=== PATIENT | male | born 1965 | race Caucasian/White ===

== ENCOUNTER 2021-03-11 05:28 | Day surgery (SDC) | payer BC, OTHER ==
[2021-03-08 12:44] VITALS: BMI 27.1
[2021-03-11] MEDS ORDERED: LIDOCAINE HCL 1%, 10 MG/ML (20ML VIAL) ONE (07:08)
[2021-03-11] MEDS ORDERED: BUPIVACAINE HCL/PF 0.5% (5MG/ML) 10 ML VIAL ONE (07:09)
[2021-03-11] MEDS ORDERED: MIDAZOLAM HCL 2 MG/2 ML SINGLE DOSE VIAL ONE (07:44)
[2021-03-11] MEDS ORDERED: DEXAMETHASONE SOD PHOSPHATE 4 MG/1 ML VIAL ONE (08:18)
[2021-03-11] MEDS ORDERED: ceFAZolin SODIUM 1 GM VIAL ONE (08:18)
[2021-03-11] MEDS ORDERED: ONDANSETRON 4 MG/2 ML VIAL ONE (08:18)
[2021-03-11] MEDS ORDERED: KETOROLAC TROMETHAMINE 30 MG/1 ML VIAL ONE (08:18)
[2021-03-11] MEDS ORDERED: ceFAZolin SODIUM 1 GM VIAL IVPB ONE (08:20)
[2021-03-11] MEDS ORDERED: BUPIVACAINE HCL/PF 0.5% (5MG/ML) 10 ML VIAL IJ ONE ×2 (08:30)
[2021-03-11] MEDS ORDERED: LIDOCAINE HCL 1%, 10 MG/ML (20ML VIAL) INF ONE ×2 (08:30)
[2021-03-11] MEDS ORDERED: PROPOFOL 20 ML ONE (08:36)
[2021-03-11 09:11] LABS: URINE APPEARANCE CLEAR; URINE BILIRUBIN NEGATIVE (NEGATIVE); URINE COLOR YELLOW; URINE GLUCOSE (UA) NEGATIVE (NEGATIVE); URINE KETONE NEGATIVE (NEGATIVE); URINE LEUK ESTERASE NEGATIVE (NEGATIVE); URINE NITRITE NEGATIVE (NEGATIVE); URINE PROTEIN NEGATIVE (NEGATIVE); URINE UROBILINOGEN 0.2 mg/dL (0.2-1.0)
[2021-03-11] MEDS ORDERED: ONDANSETRON 4 MG/2 ML VIAL IVPUSH PRN ×2 (09:15→12:29)
[2021-03-11] MEDS ORDERED: LACTATED RINGERS SOLUTION 1,000 ML IV SCH ×2 (09:15→12:30)
[2021-03-11] MEDS ORDERED: oxyCODONE HCL 5 MG TABLET PO PRN ×2 (09:15→12:29)
[2021-03-11 12:07] VITALS: BP 146/94; PULSE 71; TEMP 97.3
== END 2021-03-11 11:30 | disposition home or self-care (01) ==
LOC: JASU-SURG 05:28
PROVIDERS: ATTEND Orthopaedic Surgery
PROC: 0LN80ZZ Release Left Hand Tendon, Open Approach (ICD-10-PCS; principal; 2021-03-11 08:00)
DX: M65.332 Trigger finger, left middle finger (principal)
CPT/HCPCS: 81003; 82962; 88304-TC

== ENCOUNTER 2022-08-07 03:27 | Inpatient (IN) | payer BC, OTHER ==
[2022-08-07 04:02] VITALS: BMI 28.3
[2022-08-07] MEDS ORDERED: ACETAMINOPHEN 1000 MG/100 ML BAG IVPB ONE (04:20)
[2022-08-07] MEDS ORDERED: ACETAMINOPHEN INJECTION 100 ML IVPB ONE (04:28)
[2022-08-07] MEDS ORDERED: ONDANSETRON 4 MG/2 ML VIAL ONE (04:28)
[2022-08-07] MEDS ORDERED: ONDANSETRON 4 MG/2 ML VIAL IVPUSH ONE (04:34)
[2022-08-07 04:58] LABS: BASO % 0.2 % (0-2.0); EOS % 0.1 % (0-4.5); HEMATOCRIT 42.4 % (35.4-49); HEMOGLOBIN 14.6 GM/dL (11.7-16.9); LYMPH % 9.1 % (8-40); MCH 28.5 pg (25.7-33.7); MCHC 34.5 g/dl (32.0-35.9); MEAN CELL VOLUME 82.7 fl (80-96); MEAN PLT VOLUME 9.7 fl (7.5-11.1); MONO % 3.6 % (3.8-10.2); PLATELET COUNT 184 10^3/uL (134-434); RBC 5.13 M/mm3 (4.00-5.60); RDW 13.5 % (11.9-15.9); WHITE BLOOD COUNT 10.2 K/mm3 (4.0-10.0)
[2022-08-07 05:00] LABS: EPI CELLS 2 /uL (0-25.1); HYALINE CASTS 1 /uL (0-3.1); PH,URINE 5.5 (5.0-8.0); URINE APPEARANCE CLEAR; URINE BACTERIA 0 /uL (0-1359); URINE BILIRUBIN NEGATIVE (NEGATIVE); URINE COLOR YELLOW; URINE GLUCOSE (UA) NEGATIVE (NEGATIVE); URINE KETONE 1+ (NEGATIVE); URINE LEUK ESTERASE NEGATIVE (NEGATIVE); URINE NITRITE NEGATIVE (NEGATIVE); URINE PROTEIN 1+ (NEGATIVE); URINE RBC 29 /uL (0-23.9); URINE UROBILINOGEN 0.2 mg/dL (0.2-1.0); URINE WBC 4 /uL (0-25.8)
[2022-08-07 05:13] LABS: CALCIUM 9.5 mg/dL (8.5-10.1)
[2022-08-07 05:14] LABS: ALBUMIN 4.5 g/dl (3.4-5.0); BLOOD UREA NITROGEN 18.6 mg/dL (7-18); MAGNESIUM 1.8 mg/dL (1.8-2.4)
[2022-08-07 05:17] LABS: CREATININE 1.3 mg/dL (0.55-1.3); PHOSPHOROUS 3.5 mg/dL (2.5-4.9)
[2022-08-07 05:18] LABS: TOT PROT 7.6 g/dl (6.4-8.2)
[2022-08-07] MEDS ORDERED: ASPIRIN 81 MG CHEWABLE TABLETS ONE (05:54)
[2022-08-07] MEDS ORDERED: ASPIRIN 81 MG CHEWABLE TABLETS PO ONE (05:54)
[2022-08-07] MEDS ORDERED: SODIUM CHLORIDE 0.9% 500 ML INFUS.BAG IV ONE (06:14)
[2022-08-07] MEDS ORDERED: ASPIRIN COATED 81 MG TABLET.EC ONE (10:19)
[2022-08-07] MEDS ORDERED: amLODIPine BESYLATE 5 MG TABLET (FP) ONE (10:19)
[2022-08-07] MEDS ORDERED: METOPROLOL TARTRATE 50 MG TABLET (FP) ONE (10:19)
[2022-08-07] MEDS ORDERED: ENOXAPARIN NA (PORCINE) 40 MG/0.4 ML DISP.SYRIN SQ ONE (10:20)
[2022-08-07] MEDS ORDERED: TAMSULOSIN HCL 0.4 MG CAP ONE (10:20)
[2022-08-07] MEDS: amLODIPine BESYLATE 5 MG TABLET (FP) PO SCH (10:25)
[2022-08-07] MEDS: METOPROLOL TARTRATE 50 MG TABLET (FP) PO SCH ×2 (10:25→23:01)
[2022-08-07] MEDS: TAMSULOSIN HCL 0.4 MG CAP PO SCH (10:25)
[2022-08-07] MEDS: ASPIRIN COATED 81 MG TABLET.EC PO SCH (10:25)
[2022-08-07] MEDS: ENOXAPARIN NA (PORCINE) 40 MG/0.4 ML DISP.SYRIN SQ SCH (10:25)
[2022-08-07] MEDS: LACTATED RINGERS SOLUTION 1,000 ML/1,000 ML INFUS.BAG IV SCH ×2 (10:36→23:02)
[2022-08-07] MEDS ORDERED: ONDANSETRON 4 MG/2 ML VIAL IVPUSH PRN (11:03)
[2022-08-07] MEDS ORDERED: ACETAMINOPHEN 325 MG TABLET (FP) PO PRN ×2 (11:03→12:20)
[2022-08-07] MEDS: INSULIN SLIDING SCALE (NOVOLOG) 1 VIAL SQ SCH ×3 (11:45→23:12)
[2022-08-07] MEDS ORDERED: KETOROLAC TROMETHAMINE 30 MG/1 ML VIAL IVPUSH ONE (11:58)
[2022-08-07] MEDS ORDERED: KETOROLAC TROMETHAMINE 30 MG/1 ML VIAL IVPUSH PRN (12:19)
[2022-08-07] MEDS: ATORVASTATIN CA 40 MG TABLET (FP) PO SCH (23:01)
[2022-08-08] MEDS: INSULIN SLIDING SCALE (NOVOLOG) 1 VIAL SQ SCH ×4 (06:12→21:24)
[2022-08-08 07:07] LABS: BASO % 0.4 % (0-2.0); EOS % 2.7 % (0-4.5); HEMATOCRIT 36.9 % (35.4-49); HEMOGLOBIN 12.9 GM/dL (11.7-16.9); MCH 28.9 pg (25.7-33.7); MCHC 35.1 g/dl (32.0-35.9); MEAN CELL VOLUME 82.3 fl (80-96); MEAN PLT VOLUME 9.7 fl (7.5-11.1); MONO % 11.1 % (3.8-10.2); NEUT % 55.8 % (42.8-82.8); PLATELET COUNT 136 10^3/uL (134-434); RBC 4.48 M/mm3 (4.00-5.60); RDW 13.3 % (11.9-15.9); WHITE BLOOD COUNT 4.7 K/mm3 (4.0-10.0)
[2022-08-08 07:31] LABS: CALCIUM 8.4 mg/dL (8.5-10.1)
[2022-08-08 07:32] LABS: MAGNESIUM 1.9 mg/dL (1.8-2.4)
[2022-08-08 07:35] LABS: CREATININE 1.3 mg/dL (0.55-1.3); PHOSPHOROUS 2.9 mg/dL (2.5-4.9)
[2022-08-08 07:36] LABS: BILIRUBIN,TOTAL 1.1 mg/dL (0.2-1); TOT PROT 5.8 g/dl (6.4-8.2)
[2022-08-08 07:42] LABS: ALBUMIN 3.3 g/dl (3.4-5.0)
[2022-08-08] MEDS: LACTATED RINGERS SOLUTION 1,000 ML/1,000 ML INFUS.BAG IV SCH ×2 (09:07→23:04)
[2022-08-08] MEDS: ASPIRIN COATED 81 MG TABLET.EC PO SCH (09:07)
[2022-08-08] MEDS: METOPROLOL TARTRATE 50 MG TABLET (FP) PO SCH ×2 (09:07→21:19)
[2022-08-08] MEDS: TAMSULOSIN HCL 0.4 MG CAP PO SCH (09:07)
[2022-08-08] MEDS: amLODIPine BESYLATE 5 MG TABLET (FP) PO SCH (09:08)
[2022-08-08] MEDS: ENOXAPARIN NA (PORCINE) 40 MG/0.4 ML DISP.SYRIN SQ SCH (09:08)
[2022-08-08] MEDS ORDERED: MAGNESIUM SULF 50% (8.12 MEQ/2 ML-1 GM VIAL) IVPB ONE (09:57)
[2022-08-08] MEDS ORDERED: TAMSULOSIN HCL 0.4 MG CAP PO ONE (13:49)
[2022-08-08] MEDS: ACETAMINOPHEN 1000 MG/100 ML BAG IVPB PRN ×2 (14:15→23:09)
[2022-08-08] MEDS: ATORVASTATIN CA 40 MG TABLET (FP) PO SCH (21:19)
[2022-08-09] MEDS: INSULIN SLIDING SCALE (NOVOLOG) 1 VIAL SQ SCH ×4 (06:48→21:24)
[2022-08-09 07:08] LABS: HEMATOCRIT 38.8 % (35.4-49); HEMOGLOBIN 13.5 GM/dL (11.7-16.9); MCHC 34.9 g/dl (32.0-35.9); MEAN PLT VOLUME 9.8 fl (7.5-11.1); PLATELET COUNT 142 10^3/uL (134-434); RBC 4.67 M/mm3 (4.00-5.60); RDW 13.3 % (11.9-15.9); WHITE BLOOD COUNT 5.5 K/mm3 (4.0-10.0)
[2022-08-09 07:29] LABS: POTASSIUM 3.8 mmol/L (3.5-5.1)
[2022-08-09 07:32] LABS: ALBUMIN 3.6 g/dl (3.4-5.0); CALCIUM 8.5 mg/dL (8.5-10.1); MAGNESIUM 2.2 mg/dL (1.8-2.4)
[2022-08-09 07:35] LABS: PHOSPHOROUS 3.8 mg/dL (2.5-4.9)
[2022-08-09 07:36] LABS: CREATININE 1.8 mg/dL (0.55-1.3)
[2022-08-09 07:37] LABS: BILIRUBIN,TOTAL 1.1 mg/dL (0.2-1); TOT PROT 6.5 g/dl (6.4-8.2)
[2022-08-09] MEDS: TAMSULOSIN HCL 0.4 MG CAP PO SCH (09:19)
[2022-08-09] MEDS: ASPIRIN COATED 81 MG TABLET.EC PO SCH (09:19)
[2022-08-09] MEDS: METOPROLOL TARTRATE 50 MG TABLET (FP) PO SCH ×2 (09:19→21:24)
[2022-08-09] MEDS: ENOXAPARIN NA (PORCINE) 40 MG/0.4 ML DISP.SYRIN SQ SCH (09:19)
[2022-08-09] MEDS: amLODIPine BESYLATE 5 MG TABLET (FP) PO SCH (09:20)
[2022-08-09] MEDS: LACTATED RINGERS SOLUTION 1,000 ML/1,000 ML INFUS.BAG IV SCH (09:21)
[2022-08-09] MEDS: ACETAMINOPHEN 1000 MG/100 ML BAG IVPB PRN (10:39)
[2022-08-09] MEDS ORDERED: GLYCERIN 1 RECTAL SUPPOSITORY, ADULT RC ONE (14:30)
[2022-08-09] MEDS ORDERED: ACETAMINOPHEN 1000 MG/100 ML BAG IVPB ONE (19:01)
[2022-08-09] MEDS: ATORVASTATIN CA 40 MG TABLET (FP) PO SCH (21:23)
[2022-08-10] MEDS: INSULIN SLIDING SCALE (NOVOLOG) 1 VIAL SQ SCH ×4 (06:11→21:33)
[2022-08-10 06:36] LABS: INR 1.15 (0.83-1.09); PROTHROMBIN TIME (PATIENT) 13.3 SEC (9.7-13.0)
[2022-08-10 06:46] LABS: POTASSIUM 4.1 mmol/L (3.5-5.1)
[2022-08-10 06:48] LABS: ALBUMIN 3.7 g/dl (3.4-5.0); BLOOD UREA NITROGEN 18.9 mg/dL (7-18); CALCIUM 8.7 mg/dL (8.5-10.1); MAGNESIUM 2.1 mg/dL (1.8-2.4)
[2022-08-10 06:51] LABS: CREATININE 1.7 mg/dL (0.55-1.3); PHOSPHOROUS 3.9 mg/dL (2.5-4.9)
[2022-08-10 06:53] LABS: TOT PROT 6.7 g/dl (6.4-8.2)
[2022-08-10 07:11] LABS: BASO % 0.6 % (0-2.0); EOS % 2.9 % (0-4.5); HEMOGLOBIN 13.6 GM/dL (11.7-16.9); LYMPH % 21.7 % (8-40); MCH 28.8 pg (25.7-33.7); MCHC 34.8 g/dl (32.0-35.9); MEAN CELL VOLUME 82.7 fl (80-96); MEAN PLT VOLUME 9.4 fl (7.5-11.1); MONO % 11.7 % (3.8-10.2); NEUT % 63.1 % (42.8-82.8); PLATELET COUNT 153 10^3/uL (134-434); RBC 4.72 M/mm3 (4.00-5.60); RDW 13.3 % (11.9-15.9); WHITE BLOOD COUNT 5.2 K/mm3 (4.0-10.0)
[2022-08-10] MEDS ORDERED: ACETAMINOPHEN 1000 MG/100 ML BAG IVPB ONE (07:23)
[2022-08-10] MEDS: TAMSULOSIN HCL 0.4 MG CAP PO SCH (08:34)
[2022-08-10] MEDS: LACTATED RINGERS SOLUTION 1,000 ML/1,000 ML INFUS.BAG IV SCH (09:29)
[2022-08-10] MEDS: amLODIPine BESYLATE 5 MG TABLET (FP) PO SCH (09:30)
[2022-08-10] MEDS: METOPROLOL TARTRATE 50 MG TABLET (FP) PO SCH ×2 (09:30→21:32)
[2022-08-10] MEDS ORDERED: MIDAZOLAM HCL 2 MG/2 ML SINGLE DOSE VIAL ONE (13:07)
[2022-08-10] MEDS ORDERED: PROPOFOL 40 ML ONE (13:07)
[2022-08-10] MEDS ORDERED: LIDOCAINE HCL/PF 2% SDV 5ML VIAL ONE (13:07)
[2022-08-10] MEDS ORDERED: DEXAMETHASONE SOD PHOSPHATE 4 MG/1 ML VIAL ONE (13:07)
[2022-08-10] MEDS ORDERED: ONDANSETRON 4 MG/2 ML VIAL ONE (13:07)
[2022-08-10] MEDS ORDERED: ceFAZolin SODIUM 1 GM VIAL IVPB ONE (13:29)
[2022-08-10] MEDS ORDERED: ONDANSETRON 4 MG/2 ML VIAL IVPUSH PRN ×2 (13:46→13:58)
[2022-08-10] MEDS ORDERED: LACTATED RINGERS SOLUTION 1,000 ML/1,000 ML INFUS.BAG IV SCH (13:58)
[2022-08-10] MEDS ORDERED: ACETAMINOPHEN 1000 MG/100 ML BAG IVPB PRN (14:41)
[2022-08-10] MEDS: SODIUM CHLORIDE 0.45% 1,000 ML IV SCH (15:29)
[2022-08-10] MEDS: CEFTRIAXONE 1 GM in DEXTROSE 5%-WATER - 50 ML IVPB SCH (16:36)
[2022-08-10] MEDS ORDERED: ATORVASTATIN CA 40 MG TABLET (FP) PO SCH (22:00)
[2022-08-10 23:08] VITALS: RESP 16
[2022-08-11] MEDS: SODIUM CHLORIDE 0.45% 1,000 ML IV SCH ×2 (01:19→15:22)
[2022-08-11] MEDS: INSULIN SLIDING SCALE (NOVOLOG) 1 VIAL SQ SCH ×2 (06:31→11:37)
[2022-08-11 07:13] LABS: HEMATOCRIT 36.3 % (35.4-49); HEMOGLOBIN 12.7 GM/dL (11.7-16.9); LYMPH % 7.8 % (8-40); MCH 28.8 pg (25.7-33.7); MCHC 34.9 g/dl (32.0-35.9); MEAN CELL VOLUME 82.6 fl (80-96); MEAN PLT VOLUME 9.2 fl (7.5-11.1); MONO % 5.5 % (3.8-10.2); NEUT % 86.7 % (42.8-82.8); PLATELET COUNT 160 10^3/uL (134-434); RDW 13.2 % (11.9-15.9); WHITE BLOOD COUNT 9.4 K/mm3 (4.0-10.0)
[2022-08-11 07:20] LABS: POTASSIUM 4.3 mmol/L (3.5-5.1)
[2022-08-11 07:29] LABS: ALBUMIN 3.1 g/dl (3.4-5.0); BLOOD UREA NITROGEN 16.4 mg/dL (7-18); CALCIUM 8.5 mg/dL (8.5-10.1); MAGNESIUM 1.9 mg/dL (1.8-2.4)
[2022-08-11 07:32] LABS: PHOSPHOROUS 3.8 mg/dL (2.5-4.9)
[2022-08-11 07:33] LABS: BILIRUBIN,TOTAL 1.2 mg/dL (0.2-1); TOT PROT 6.1 g/dl (6.4-8.2)
[2022-08-11] MEDS ORDERED: TAMSULOSIN HCL 0.4 MG CAP PO SCH (09:00)
[2022-08-11] MEDS ORDERED: MAGNESIUM 1GM/D5W 100ML - 100 ML IVPB IVPB ONE (09:15)
[2022-08-11] MEDS: CEFTRIAXONE 1 GM in DEXTROSE 5%-WATER - 50 ML IVPB SCH (09:33)
[2022-08-11] MEDS: METOPROLOL TARTRATE 50 MG TABLET (FP) PO SCH (09:34)
[2022-08-11] MEDS ORDERED: ASPIRIN COATED 81 MG TABLET.EC PO SCH (10:00)
[2022-08-11] MEDS ORDERED: amLODIPine BESYLATE 5 MG TABLET (FP) PO SCH (10:00)
[2022-08-11] MEDS ORDERED: ENOXAPARIN NA (PORCINE) 40 MG/0.4 ML DISP.SYRIN SQ SCH (10:00)
[2022-08-11] MEDS ORDERED: GLYCERIN 1 RECTAL SUPPOSITORY, ADULT RC ONE (14:00)
[2022-08-11 15:14] VITALS: BP 145/76; PULSE 73; TEMP 98
== END 2022-08-11 16:06 | disposition home or self-care (01) | DRG 661 ==
LOC: JER 03:27 → INTOOBSV 06:18 → JERBED 06:18 → UNDOADMOB 06:18 → JERBED 09:06 → J4S 10:32 → OBSVTOIN 08-09 13:40
PROVIDERS: ADMIT Internal Medicine; ATTEND Internal Medicine
PROC: 0T768DZ Dilation of Right Ureter with Intraluminal Device, Via Natural or Artificial Opening Endoscopic (ICD-10-PCS; principal; 2022-08-10 13:00)
DX: N13.2 Hydronephrosis with renal and ureteral calculous obstruction (principal); I10 Essential (primary) hypertension; E78.5 Hyperlipidemia, unspecified; I25.10 Atherosclerotic heart disease of native coronary artery without angina pectoris; Z95.1 Presence of aortocoronary bypass graft; N17.9 Acute kidney failure, unspecified; R31.29 Other microscopic hematuria; E11.9 Type 2 diabetes mellitus without complications
CPT/HCPCS: 36415; 71045-TC-FY; 74176-TC; 76000-TC-FY; 76775-TC; 80048; 80053; 81003; 82962; 83605; 83735; 84100; 84484; 85025; 85027; 85610; 86850; 86900; 86901; 87070; 87075; 87086; 87205; 93005; 93010; 93306-TC; 94760; 99285-25; C2617; C9803-CS; G0378; U0003; U0005

== ENCOUNTER 2022-08-21 04:14 | Day surgery (SDC) | payer BC, OTHER ==
[2022-08-15 17:07] VITALS: BMI 27.6
[2022-08-21] MEDS ORDERED: MIDAZOLAM HCL 2 MG/2 ML SINGLE DOSE VIAL ONE (12:39)
[2022-08-21] MEDS ORDERED: LIDOCAINE HCL/PF 2% SDV 5ML VIAL ONE (12:39)
[2022-08-21] MEDS ORDERED: PROPOFOL 20 ML ONE (12:39)
[2022-08-21] MEDS ORDERED: DEXAMETHASONE SOD PHOSPHATE 4 MG/1 ML VIAL ONE (14:05)
[2022-08-21] MEDS ORDERED: ceFAZolin SODIUM 1 GM VIAL IVPB ONE (14:05)
[2022-08-21] MEDS ORDERED: ONDANSETRON 4 MG/2 ML VIAL ONE (14:05)
[2022-08-21] MEDS ORDERED: ceFAZolin SODIUM 1 GM VIAL ONE (14:05)
[2022-08-21] MEDS ORDERED: KETOROLAC TROMETHAMINE 30 MG/1 ML VIAL ONE (14:05)
[2022-08-21] MEDS ORDERED: oxyCODONE HCL 5 MG TABLET PO PRN ×2 (14:54)
[2022-08-21] MEDS ORDERED: ACETAMINOPHEN 1000 MG/100 ML BAG IVPB ONE (14:54)
[2022-08-21] MEDS ORDERED: PROMETHAZINE HCL 25 MG/1 ML VIAL IVPB PRN (14:54)
[2022-08-21] MEDS ORDERED: ONDANSETRON 4 MG/2 ML VIAL IVPUSH PRN (14:54)
[2022-08-21] MEDS ORDERED: LACTATED RINGERS SOLUTION 1,000 ML IV SCH (15:00)
[2022-08-21] MEDS ORDERED: ACETAMINOPHEN INJECTION 100 ML IVPB ONE (15:21)
[2022-08-21 16:54] VITALS: PULSE 70; RESP 18; TEMP 97.8
[2022-08-21 17:59] VITALS: BP 130/70
== END 2022-08-21 17:30 | disposition home or self-care (01) ==
LOC: JASU-SURG 04:14
PROVIDERS: ATTEND Urology
PROC: 0TC78ZZ Extirpation of Matter from Left Ureter, Via Natural or Artificial Opening Endoscopic (ICD-10-PCS; principal; 2022-08-21 14:00)
PROC: 0T768DZ Dilation of Right Ureter with Intraluminal Device, Via Natural or Artificial Opening Endoscopic (ICD-10-PCS; 2022-08-21 14:00)
DX: N13.2 Hydronephrosis with renal and ureteral calculous obstruction (principal)
CPT/HCPCS: 76000-TC-FY; 82962; 94760; C1747; C1758; C1894; C2617

== ENCOUNTER 2024-08-13 07:19 | Emergency (ER) | payer BC, OTHER ==
[2024-08-13 07:27] VITALS: BP 147/70; PULSE 63; RESP 18; TEMP 98.7; BMI 27.3
[2024-08-13 08:26] LABS: ABSOLUTE IMMATURE GRANULOCYTES 0.03 x10^3/uL (0.0-0.031); BASOPHILS # 0.02 x10^3/uL (0.01-0.08); EOSINOPHIL % 0.8 % (0.8-7.0); EOSINOPHILS # 0.06 x10^3/uL (0.04-0.54); HEMATOCRIT 41.6 % (40.1-51.0); HEMOGLOBIN 13.7 g/dL (13.7-17.5); MCHC 32.9 g/dl (32.3-36.5); MEAN CELL VOLUME 83.9 fl (79.0-92.2); MONOCYTE # 0.43 x10^3/uL (0.30-0.82); MONOCYTE % 5.6 % (5.3-12.2); PLATELET COUNT 175 x10^3/uL (163-337)
[2024-08-13 08:36] LABS: INR 1.02 (0.83-1.09); PROTHROMBIN TIME (PATIENT) 11.2 SEC (9.7-13.0)
[2024-08-13 08:39] LABS: ACTIVATED PTT 25.7 SECONDS (25.2-36.5)
[2024-08-13 08:42] LABS: EPI CELLS 2 /uL (0-25.1); HYALINE CASTS 0 /uL (0-3.1); PH,URINE 5.5 (5.0-8.0); URINE APPEARANCE CLEAR; URINE BACTERIA 8 /uL (0-1359); URINE BILIRUBIN NEGATIVE (NEGATIVE); URINE COLOR YELLOW; URINE GLUCOSE (UA) NEGATIVE (NEGATIVE); URINE KETONE NEGATIVE (NEGATIVE); URINE LEUK ESTERASE NEGATIVE (NEGATIVE); URINE NITRITE NEGATIVE (NEGATIVE); URINE PROTEIN NEGATIVE (NEGATIVE); URINE RBC 25 /uL (0-23.9); URINE UROBILINOGEN 0.2 mg/dL (0.2-1.0); URINE WBC 5 /uL (0-25.8)
[2024-08-13] MEDS ORDERED: ONDANSETRON 4 MG/2 ML VIAL ONE (08:53)
[2024-08-13] MEDS ORDERED: KETOROLAC TROMETHAMINE 15 MG/ML VIAL ONE (08:53)
[2024-08-13 08:55] LABS: CALCIUM 9.5 mg/dL (8.5-10.1)
[2024-08-13 08:56] LABS: ALBUMIN 4.3 g/dl (3.4-5.0); BLOOD UREA NITROGEN 15.7 mg/dL (7-18)
[2024-08-13 08:59] LABS: CREATININE 1.2 mg/dL (0.55-1.3)
[2024-08-13] MEDS: SODIUM CHLORIDE 1,000 ML IV ONE (09:00)
[2024-08-13 09:01] LABS: BILIRUBIN,TOTAL 0.7 mg/dL (0.2-1); TOT PROT 7.5 g/dl (6.4-8.2)
[2024-08-13] MEDS: ONDANSETRON 4 MG/2 ML VIAL IVPUSH ONE (09:01)
[2024-08-13] MEDS: KETOROLAC TROMETHAMINE 15 MG/ML VIAL IVPUSH ONE (09:01)
[2024-08-13 11:36] LABS: HCV DIAGNOSTIC IN-HOUSE W/RFLX NON-REACTIVE (NONREACTIVE)
[2024-08-13 11:39] LABS: HIV INTERPRETATION NEGATIVE (NEGATIVE)
== END 2024-08-13 10:05 | disposition home or self-care (01) ==
LOC: JER 07:19
PROC: 3E033GC Introduction of Other Therapeutic Substance into Peripheral Vein, Percutaneous Approach (ICD-10-PCS; principal; 2024-08-13)
PROC: 3E033GC Introduction of Other Therapeutic Substance into Peripheral Vein, Percutaneous Approach (ICD-10-PCS; 2024-08-13)
PROC: 3E0337Z Introduction of Electrolytic and Water Balance Substance into Peripheral Vein, Percutaneous Approach (ICD-10-PCS; 2024-08-13)
DX: N13.2 Hydronephrosis with renal and ureteral calculous obstruction (principal); R11.2 Nausea with vomiting, unspecified
CPT/HCPCS: 36415; 74176-TC; 80053; 81003; 83690; 85025; 85610; 85730; 86803; 86850; 86900; 86901; 87086; 87389; 99285-25